=== PATIENT | female | born 1985 | race Caucasian/White ===

== ENCOUNTER 2019-10-18 13:20 | Inpatient (IN) | payer BC ==
[~2019-10-18] VITALS: Ht 162.6 cm; Wt 54.9 kg
[2019-10-18] MEDS ORDERED: PRENATAL TABLE1 EAC2 PO (13:47)
[2019-10-18 13:54] LABS: PCO2 Arterial 20.9 mmHg (35-45); PO2 Arterial 111 mmHg (80-100)
[2019-10-18 13:55] LABS: pH Blood Arterial 7.16 (7.35-7.45)
[2019-10-18 14:03] LABS: BASOPHILS ABSOLUTE AUTO 0.03 K/mm3 (0.00-0.23); BASOPHILS PERCENT AUTO 0 % (0-2); EOSINOPHILS PERCENT AUTO 0 % (0-6); Hematocrit 41.5 % (33.0-51.0); Hemoglobin 12.7 g/dL (11.5-16.0); IMMATURE GRAN ABSOLUTE AUTO 0.13 K/mm3 (0.00-0.10); IMMATURE GRAN PERCENT AUTO 1 % (0-1); LYMPHOCYTES ABSOLUTE AUTO 0.93 K/mm3 (0.84-5.20); LYMPHOCYTES PERCENT AUTO 6 % (21-46); MONOCYTES ABSOLUTE AUTO 0.31 K/mm3 (0.16-1.47); MONOCYTES PERCENT AUTO 2 % (4-13); Mean Corpuscular HGB 30.9 pg (26.0-34.0); Mean Corpuscular HGB Conc 30.6 g/dL (31.5-36.5); Mean Platelet Volume 10.4 fL (9.1-12.4); NEUTROPHILS ABSOLUTE AUTO 15.05 K/mm3 (1.96-9.15); NEUTROPHILS PERCENT AUTO 91 % (41-73); Platelet Count 340 K/mm3 (150-400); RDW Coefficient Variation 13.4 % (11.7-14.2); Red Blood Cell Count 4.11 M/mm3 (3.80-5.20); White Blood Cell Count 16.45 K/mm3 (4.00-11.30)
[2019-10-18 14:04] LABS: Mean Corpuscular Volume 101 fL (80-100)
[2019-10-18 14:27] LABS: Alanine Aminotransfer (ALT/SGP 63 U/L (12-78); Albumin, Blood 4.3 g/dL (3.4-5.0); Albumin/Globulin Ratio 1.1 (0.8-1.8); Alk Phos 100 U/L (50-136); Anion Gap 20 mmol/L (6-16); Aspartate Aminotrans (AST/SGOT 91 U/L (12-37); Bilirubin, Total 0.5 mg/dL (0.1-1.0); Blood Urea Nitrogen 10 mg/dL (8-24); Bun/Creatinine Ratio 15.9 (12.0-20.0); CO2, Blood 10 mmol/L (21-32); Calcium, Blood 8.1 mg/dL (8.5-10.1); Chloride, Blood 110 mmol/L (98-108); Creatinine, Blood 0.63 mg/dL (0.40-1.00); Globulin, Blood 3.8 g/dL (2.2-4.0); Glomerular Filtration Rate >60 (60-); Glucose, Blood 72 mg/dL (70-99); Potassium, Blood 4.9 mmol/L (3.5-5.5); Salicylate <1.7 mg/dL (2.8-20.0); Sodium, Blood 140 mmol/L (136-145); Total Protein, Blood 8.1 g/dL (6.4-8.2); Troponin I <0.015 ng/mL (0.000-0.040)
[2019-10-18 14:28] LABS: Osmolality, Serum 323 mos/KG (275-300)
[2019-10-18 14:29] LABS: Acetaminophen, Random <2.0 ug/mL (10.0-30.0)
[2019-10-18 15:00] LABS: U Amphetamine Screen Not Detected; U Barbituate Screen Not Detected; U Benzodiazapine Screen Not Detected; U Buprenorphine Screen Not Detected; U Cannabinoids Screen Not Detected; U Cocaine Screen Not Detected; U Methadone Screen Not Detected; U Methamphetamine Screen Not Detected; U Opiates Screen Not Detected; U Oxycodone Screen Not Detected; U Phencyclidine Screen Not Detected; U Propoxyphene Screen Not Detected
[2019-10-18 16:34] LABS: International Normalized Ratio 0.99; Prothrombin Time Results 10.6 Sec (9.7-11.5)
--- NOTE | 2019-10-18 18:53 | NUR ---
SHIFT SUMMARY PT IS A NEW ADMISSION FROM ED THIS EVENING. PT HAS NO COMPLAINTS OF PAIN OR NAUSEA AT THIS TIME. PT INDEPENDENT IN ROOM. LACTIC ACID DOWN TO 3.1 FROM 6.9. PT'S TEMP 100.9. WILL CONTINUE TO MONITOR. NO ACUTE CHANGES AT THIS TIME. PT RESTING AND TOLERATING ICE CHIPS. WILL CONTINUE TO MONITOR AND REPORT TO ONCOMING RN. CALL LIGHT IN REACH.
[2019-10-18 20:10] LABS: Source, Urine Clean Catch
[2019-10-18 20:21] LABS: Bilirubin, Urine Neg (Neg); Blood, Urine 2+ (Neg); Glucose Qualitative, Urine Neg (Neg); Ketones, Urine 4+ (Neg); Leukocyte Esterase, Urine Neg (Neg); Nitrite, Urine Neg (Neg); Protein, Urine 2+ (Neg); Urobilinogen, Urine NORM (Normal)
[2019-10-18 20:28] LABS: Appearance, Urine Clear (Clear); Color, Urine Yellow (P-Yellow)
[2019-10-18 20:29] LABS: Bacteria Mod /hpf; Red Blood Cells, Urine 0-2 /hpf (0-2); Squamous Epithelial Cells Few /hpf (Few)
--- NOTE | 2019-10-18 22:15 | NUR ---
ASSUMED CARE OF PATIENT AT [facility] FROM EVAN Harmon RN. PATIENT ALERT AND ORIENTED X4; SBA OUT OF BED. PATIENT COMPLAINS OF PAIN IN HER RIGHT JAW; MEDICATED PER EMAR WITH GOOD RESULTS. PATIENT DENIES NUMBNESS OR TINGLING. PATIENT REPORTS SOME DIZZINESS AFTER IV PAIN MEDICATION. PATIENT REPORTS SHE WAS NAUSEOUS BEFORE SHIFT CHANGE BUT IMPROVED. ST ON TELE; OXYGEN SATURATION ABOVE 90% ON ROOM AIR. IVF INFUSING PER ORDER. SCDS PLACED. PATIENT CURRENTLY RESTING IN BED; CALL LIGHT IN REACH; BED IN LOWEST POSISTION; WILL CONTINUE TO MONITOR AND ASSESS UNTIL END OF SHIFT.
[2019-10-19 04:05] LABS: BASOPHILS ABSOLUTE AUTO 0.02 K/mm3 (0.00-0.23); BASOPHILS PERCENT AUTO 0 % (0-2); EOSINOPHILS ABSOLUTE AUTO 0.05 K/mm3 (0.00-0.68); EOSINOPHILS PERCENT AUTO 1 % (0-6); Hematocrit 32.9 % (33.0-51.0); Hemoglobin 10.6 g/dL (11.5-16.0); IMMATURE GRAN ABSOLUTE AUTO 0.03 K/mm3 (0.00-0.10); IMMATURE GRAN PERCENT AUTO 0 % (0-1); LYMPHOCYTES ABSOLUTE AUTO 2.03 K/mm3 (0.84-5.20); LYMPHOCYTES PERCENT AUTO 21 % (21-46); MONOCYTES ABSOLUTE AUTO 0.61 K/mm3 (0.16-1.47); MONOCYTES PERCENT AUTO 6 % (4-13); Mean Corpuscular HGB 30.9 pg (26.0-34.0); Mean Corpuscular HGB Conc 32.2 g/dL (31.5-36.5); Mean Corpuscular Volume 96 fL (80-100); Mean Platelet Volume 10.5 fL (9.1-12.4); NEUTROPHILS ABSOLUTE AUTO 6.86 K/mm3 (1.96-9.15); NEUTROPHILS PERCENT AUTO 72 % (41-73); Platelet Count 181 K/mm3 (150-400); RDW Coefficient Variation 13.4 % (11.7-14.2); RDW Standard Deviation 47.7 fL (35.1-46.3); Red Blood Cell Count 3.43 M/mm3 (3.80-5.20)
[2019-10-19 04:28] LABS: Albumin, Blood 3.5 g/dL (3.4-5.0); Anion Gap 9 mmol/L (6-16); Blood Urea Nitrogen 8 mg/dL (8-24); CO2, Blood 22 mmol/L (21-32); Chloride, Blood 107 mmol/L (98-108); Creatinine, Blood 0.62 mg/dL (0.40-1.00); Glomerular Filtration Rate >60 (60-); Glucose, Blood 97 mg/dL (70-99); Potassium, Blood 3.9 mmol/L (3.5-5.5); Sodium, Blood 138 mmol/L (136-145)
--- NOTE | 2019-10-19 06:03 | NUR ---
PATIENT SLEPT ABOUT EIGHT HOURS LAST NIGHT. MEDICATED FOR PAIN ONE MORE TIME LAST NIGHT WITH GOOD RESULTS. VSS. HEART RATE TOUCHED BELOW 100 AT TIMES. PATIENT REPORTS SHE FEELS BETTER; WOULD LIKE TO GO HOME. NO OTHER ACUTE CHANGES TO REPORT. WILL CONTINUE TO MONITOR AND ASSESS UNTIL END OF SHIFT.
--- NOTE | 2019-10-19 06:38 | NUR ---
CALLED DR. WEATHERS REGARDING PHOSPHORUS OF 1.0; ORDERS RECIEVED.
--- NOTE | 2019-10-19 16:31 | NUR ---
ASSUMED PT CARE FROM PCU. RECEIVED REPORT FROM DOLLY ALVARADO. PT TRANSPORTED TO THE UNIT VIA W/C. PT INDEPENDENT IN ROOM. CURRENTLY RESTING IN BED. PT REPORTS PAIN OF 3/10 IN HER JAW. SHE DENIES ANY PAIN MEDICATION AT THIS TIME. WILL CONTINUE TO MONITOR PT.
--- NOTE | 2019-10-19 16:59 | NUR ---
PT REPORTING PAIN IN HER RIGHT BREAST DUE TO WEANING CHILD FROM . CONSULTED [facility] RN [place]. PT HAS PREM WRAP AROUND BREASTS AND HAS BEEN ICING HER RIGHT BREAST. PT CURRENTLY TAKING WARM SHOWER. PT EDUCATED ABOUT MONITORING FOR ELEVATED TEMPERATURE. WILL CONTINUE TO MONITOR PT.
--- NOTE | 2019-10-19 17:21 | NUR ---
PT TRANSFERRED FROM PCU. A&O X4 AND INDEPENDENT IN THE ROOM. PT RATES JAW PAIN AT A 3/10 WHICH IS A TOLERABLE LEVEL FOR HER. NO NAUSEA REPORTED. VSS. WILL CONTINUE TO MONITOR PT UNTIL REPORT GIVEN TO NIGHT RN.
--- NOTE | 2019-10-19 18:45 | NUR ---
ASSUMED CARE RECEIVED REPORT FROM DOLLY VARGAS. ASSUMED CARE OF PT. PT COMFORTABLE AT THIS TIME, NO S/S ACUTE DISTRESS NOTED. CALL LIGHT, POSSESSIONS IN REACH, BED IN LOWEST POSITION. DENIES NEEDS AT THIS TIME. WILL CONTINUE TO MONITOR.
--- NOTE | 2019-10-19 22:55 | NUR ---
[id number] JESSICA REGARDING PT'S PAIN UNRELIEVED BY TYLENOL. ORDERS RECEIVED.
--- NOTE | 2019-10-20 00:30 | NUR ---
0030 THIS RN IN ROOM ROUNDING ON PT. PT CONTINUES TO C/O DISCOMFORT AND INCREASING SWELLING TO RT BREAST. K-PACK IN PLACE, PT STATING IT HASN'T BEEN HELPING MUCH. PT REPORTS SHE ALSO TOOK A WARM SHOWER, AND EXPRESSED SOME MILK DURING THAT, BUT REMAINS UNCOMFORTABLE. THIS RN SPEAKING TO [facility] RN TO ASSESS OPTIONS AND RECOMMENDATIONS. RECOMMENDED FOR PT TO USE A BREAST PUMP TO ALLEVIATE THE ENGORGEMENT. THIS RN INFORMING PT OF PLAN TO SPEAK WITH PHYSICIAN. PT INDICATED UNDERSTANDING.
--- NOTE | 2019-10-20 00:46 | NUR ---
[address] WETAHERS REGARDING PT'S C/O INCREASING RT BREAST ENGORGEMENT AND TENDERNESS. ORDERS RECEIVED.
--- NOTE | 2019-10-20 04:51 | NUR ---
SHIFT SUMMARY PT ASLEEP AT THIS TIME, APPEARS COMFORTABLE. WAS MONITORED EVERY 1-2 HOURS WITH NEEDS MET. DENIES NEEDS AT THIS TIME. STATES BREAST PUMP HAS HELPED WITH BREAST DISCOMFORT, REMAINS AT BEDSIDE AT THIS TIME FOR PT TO USE PRN. PAIN MANAGED WITH MEDICATIONS AND HEAT THERAPY. CALL LIGHT, POSSESSIONS IN REACH, BED IN LOWEST POSITION. WILL CONTINUE TO MONITOR UNTIL DAY RN ASSUMES CARE.
[2019-10-20 07:10] LABS: COMPLEMENT C3, SERUM 103 mg/dL (82-167); COMPLEMENT C4, SERUM 27 mg/dL (14-44); IMMUNOGLOBULIN A, QN, SERUM 142 mg/dL (87-352); IMMUNOGLOBULIN G, QN, SERUM 735 mg/dL (586-1602); IMMUNOGLOBULIN M, QN, SERUM 135 mg/dL (26-217)
[2019-10-20] MEDS ORDERED: AMOCLA500 PO (09:02)
[2019-10-20] MEDS ORDERED: VISBIOME 112.51 EACH PO (09:03)
--- NOTE | 2019-10-20 10:10 | NUR ---
DISCHARGE SUMMARY PT DISCHARGED TO HOME. PT LEFT ROOM JUST PRIOR TO THIS NOTE VIA WHEELCHAIR WITH TAP BUILDER ESCORT. DISCHARGE INSTRUCTIONS COMPLETED, ALL QUESTIONS ANSWERED. PT EDUCATED ON MEDICATIONS THOUGH UPON TEACHING PT STATED THAT SHE IS ALLERGIC TO AUGMENTIN. DR VILLEGAS NOTIFIED WHO CHANGED THE ORDER TO [facility]. NEW PRESCRIPTION FAXED TO PREFERRED PHARMACY. IV REMOVED AND BELONINGS RETURNED.
[2019-10-20 17:11] LABS: ANTI-DSDNA ANTIBODIES 3 IU/mL (0-9); RNP ANTIBODIES <0.2 AI (0.0-0.9); SJOGREN'S ANTI-SS-A <0.2 AI (0.0-0.9); SJOGREN'S ANTI-SS-B <0.2 AI (0.0-0.9); SMITH ANTIBODIES <0.2 AI (0.0-0.9)
== END 2019-10-20 10:06 | disposition home or self-care (01) | DRG 872 ==
LOC: ER 13:20 → PCU 15:49 → MEDS 10-19 16:06 → ENPENDDIS 10-20 08:30 → MEDS 10-20 10:06
PROVIDERS: Emergency Medicine; Internal Medicine; Nurse Practitioner Acute Care; ADMIT Internal Medicine
DX: A41.9 Sepsis, unspecified organism (principal); E87.2 Acidosis; L40.9 Psoriasis, unspecified; K08.89 Other specified disorders of teeth and supporting structures; K04.7 Periapical abscess without sinus; R65.20 Severe sepsis without septic shock
CPT/HCPCS: 36415; 36600; 70487; 71046; 80053; 80069; 81001; 82803; 83605; 83880; 83930; 84484; 85025; 85610; 85730; 86160; 86225; 86235; 86430; 87086; 93005; 93010; 96361; 96365; 96375; 99285-25; A9270; A9270-GY; G0480; J0696; J0780; J1170; J1200; J2405; J2550; J3010; J7030; J7050; J7060; J7120; Q9967

== ENCOUNTER → 2019-10-18 | Outpatient (CLI) | payer BC ==
[~2019-10-18] MED LIST: AMOCLA500 PO; PRENATAL TABLE1 EAC2 PO; VISBIOME 112.51 EACH PO
[2019-10-18 11:01] LABS: BASOPHILS ABSOLUTE AUTO 0.07 K/mm3 (0.00-0.23); BASOPHILS PERCENT AUTO 0 % (0-2); EOSINOPHILS PERCENT AUTO 0 % (0-6); Hematocrit 44.2 % (33.0-51.0); IMMATURE GRAN ABSOLUTE AUTO 0.12 K/mm3 (0.00-0.10); IMMATURE GRAN PERCENT AUTO 1 % (0-1); LYMPHOCYTES ABSOLUTE AUTO 0.73 K/mm3 (0.84-5.20); LYMPHOCYTES PERCENT AUTO 4 % (21-46); MONOCYTES ABSOLUTE AUTO 0.34 K/mm3 (0.16-1.47); MONOCYTES PERCENT AUTO 2 % (4-13); Mean Corpuscular HGB 31.2 pg (26.0-34.0); Mean Corpuscular HGB Conc 31.7 g/dL (31.5-36.5); Mean Corpuscular Volume 98 fL (80-100); Mean Platelet Volume 10.5 fL (9.1-12.4); NEUTROPHILS ABSOLUTE AUTO 19.23 K/mm3 (1.96-9.15); NEUTROPHILS PERCENT AUTO 94 % (41-73); Platelet Count 470 K/mm3 (150-400); RDW Coefficient Variation 13.3 % (11.7-14.2); RDW Standard Deviation 48.6 fL (35.1-46.3); Red Blood Cell Count 4.49 M/mm3 (3.80-5.20); White Blood Cell Count 20.49 K/mm3 (4.00-11.30)
[2019-10-18 11:18] LABS: Alanine Aminotransfer (ALT/SGP 71 U/L (12-78); Albumin/Globulin Ratio 1.1 (0.8-1.8); Alk Phos 114 U/L (40-126); Anion Gap 32 mmol/L (6-16); Aspartate Aminotrans (AST/SGOT 103 U/L (12-37); Bilirubin, Total 0.6 mg/dL (0.1-1.0); Blood Urea Nitrogen 11 mg/dL (8-24); Bun/Creatinine Ratio 10.9 (12.0-20.0); CO2, Blood 10 mmol/L (21-32); Calcium, Blood 9.2 mg/dL (8.5-10.1); Chloride, Blood 101 mmol/L (98-108); Creatinine, Blood 1.01 mg/dL (0.40-1.00); Globulin, Blood 4.4 g/dL (2.2-4.0); Glomerular Filtration Rate >60 (60-); Glucose, Blood 69 mg/dL (70-99); Potassium, Blood 5.1 mmol/L (3.5-5.5); Sodium, Blood 143 mmol/L (136-145); Thyroid Stimulating Hormone 0.274 uIU/mL (0.360-4.800); Total Protein, Blood 9.4 g/dL (6.4-8.2)
[2019-10-18 11:55] LABS: Free Thyroxine 0.86 ng/dL (0.70-1.60)
[2019-10-18 12:24] LABS: Base Excess Venous -21.4 mmol/L; Bicarbonate Venous 10.2 mmol/L (24.0-30.0); PCO2 Venous 26.7 mmHg (38-42); PO2 Venous 163 mmHg (38-42)
== END | disposition home or self-care (01) ==
LOC: LAB SHORT 10:56 → LAB EV 10:56
PROVIDERS: Physician Assistant
DX: R00.0 Tachycardia, unspecified (principal); E05.90 Thyrotoxicosis, unspecified without thyrotoxic crisis or storm
CPT/HCPCS: 80053; 82803; 84439; 84443; 84481; 84703; 85025; 85379